=== PATIENT | male | born 1950 | race African-American/Black ===

== ENCOUNTER 2021-05-20 13:01 | Inpatient (IN) | payer MEDICARE, MEDICAID ==
[~2021-05-20] VITALS: Ht 188 cm; Wt 117.9 kg
[2021-05-20 13:52] LABS: BASOPHILS % 0.6 % (0.0-2.0); EOSINOPHILS % 1.6 % (0.0-5.0); HEMOGLOBIN. 12.2 g/dL (14.0-18.0); LYMPHOCYTES % 20.2 % (20.0-50.0); MEAN CORPUSCULAR VOLUME 74.7 fL (80.0-94.0); MEAN PLATELET VOLUME 8.4 fl (7.4-10.4); MONOCYTES % 5.6 % (2.0-8.0); PLATELET 496 x1000/uL (130-400); RED BLOOD CELL COUNT 5.08 mill/uL (4.7-6.1); RED CELL DISTRIBUTION WIDTH 17.6 % (11.6-14.6)
[2021-05-20 13:59] LABS: CHLORIDE 106 mEq/L (98-107)
[2021-05-20 14:02] LABS: INR 1.1; PROTHROMBIN TIME 12.2 sec (9.6-11.0)
[2021-05-20] MEDS ORDERED: PIPERACILLIN/TAZ 3.375G PREMIX 50 ML IV ONE (14:45)
[2021-05-20] MEDS ORDERED: VANCOMYCIN 1 G PREMIX 200 ML IV ONE (14:45)
[2021-05-20] MEDS ORDERED: LORAZEPAM 2MG/ML CPJ IV PRN ×2 (19:45)
[2021-05-20] MEDS ORDERED: ACETAMINOPHEN 325MG TABLET PO PRN (21:30)
[2021-05-20] MEDS ORDERED: ONDANSETRON HCL 4MG/2ML INJ IV PRN (21:30)
[2021-05-20] MEDS ORDERED: ENOXAPARIN 40MG/0.4ML SYR SUBCUT SCH (21:30)
[2021-05-20] MEDS: DEXT 5%/0.45% NACL 1000ML 1,000 ML IV SCH (22:30)
[2021-05-20] MEDS: ENOXAPARIN 30MG/0.3ML SYR SUBCUT SCH (22:53)
[2021-05-21] VITALS: BP_SYST 131; BP_SYST 99; BP_DIAS 42; BP_DIAS 56
[2021-05-21 04:00] VITALS: BP 107/78
[2021-05-21] MEDS: LORAZEPAM 2MG/ML CPJ IV PRN (04:13)
[2021-05-21 05:27] LABS: BASOPHILS % 0.6 % (0.0-2.0); EOSINOPHILS % 0.4 % (0.0-5.0); HEMATOCRIT. 34.6 % (42.0-52.0); HEMOGLOBIN. 11.1 g/dL (14.0-18.0); LYMPHOCYTES % 15.1 % (20.0-50.0); MEAN CORPUSCULAR VOLUME 74.5 fL (80.0-94.0); MEAN PLATELET VOLUME 8.7 fl (7.4-10.4); MONOCYTES % 8.6 % (2.0-8.0); NEUTROPHILS % 75.3 % (40.0-76.0); PLATELET 387 x1000/uL (130-400); RED BLOOD CELL COUNT 4.64 mill/uL (4.7-6.1); RED CELL DISTRIBUTION WIDTH 17.6 % (11.6-14.6)
[2021-05-21 06:27] LABS: T4 FREE 2.29 ng/dL (0.76-1.46)
[2021-05-21 08:00] VITALS: BP 111/70
[2021-05-21] MEDS: ENOXAPARIN 30MG/0.3ML SYR SUBCUT SCH ×2 (10:12→21:00)
[2021-05-21 12:00] VITALS: BP 110/71
[2021-05-21 12:14] LABS: CHLORIDE 109 mEq/L (98-107)
[2021-05-21] MEDS ORDERED: ASPIRIN 81MG EC TABLET PO SCH (12:30)
[2021-05-21] MEDS: DEXT 5%/0.45% NACL 1000ML 1,000 ML IV SCH ×2 (15:25→22:39)
[2021-05-21] MEDS: PIPERACILLIN/TAZOBACTAM 3.375 G in DEXTROSE 5% WATER 50 ML IV SCH ×2 (15:25→22:26)
[2021-05-21 16:00] VITALS: BP 147/59
[2021-05-21 20:00] VITALS: BP 138/92
[2021-05-21 21:41] LABS: PHOSPHORUS 3.7 mg/dL (2.5-4.9)
[2021-05-22] VITALS: BP 121/70
[2021-05-22 02:00] LABS: BG BASE EXCESS 2.4 mmol/L (-2.0-2.0); BG CARBOXYHEMOGLOBIN 0.4 % (0.5-1.5); BG DEOXYHEMOGLOBIN 3.9 % (0.0-5.0); BG FRACTION INSPIRED OXYGEN 21; BG HCO3 ACT 26.7 mmol/L (22.0-26.0); BG METHEMOGLOBIN 0.3 % (0.0-1.5); BG OXYGEN SATURATION 96.1 % (92.0-98.5); BG OXYHEMOGLOBIN 95.4 % (94.0-97.0); BG PH 7.442 (7.350-7.450); BG PO2 82.1 mmHg (75.0-100.0); BG SAMPLE SITE RIGHT RADIAL; BG TOTAL HEMOGLOBIN 12.8 g/dL (12.0-18.0); BG VENT MODE ROOM AIR
[2021-05-22 04:00] VITALS: BP 153/79
[2021-05-22] MEDS: PIPERACILLIN/TAZOBACTAM 3.375 G in DEXTROSE 5% WATER 50 ML IV SCH ×3 (06:08→21:00)
[2021-05-22] MEDS: DEXT 5%/0.45% NACL 1000ML 1,000 ML IV SCH ×3 (06:08→22:32)
[2021-05-22 07:35] LABS: BASOPHILS % 0.7 % (0.0-2.0); EOSINOPHILS % 1.8 % (0.0-5.0); HEMATOCRIT. 34.2 % (42.0-52.0); LYMPHOCYTES % 10.9 % (20.0-50.0); MEAN CORPUSCULAR HEMOGLOBIN 23.8 pg (28.0-32.0); MEAN CORPUSCULAR VOLUME 73.9 fL (80.0-94.0); MEAN PLATELET VOLUME 8.7 fl (7.4-10.4); MONOCYTES % 6.3 % (2.0-8.0); NEUTROPHILS % 80.3 % (40.0-76.0); PLATELET 424 x1000/uL (130-400); RED BLOOD CELL COUNT 4.63 mill/uL (4.7-6.1); RED CELL DISTRIBUTION WIDTH 17.4 % (11.6-14.6)
[2021-05-22 07:52] LABS: CHLORIDE 108 mEq/L (98-107)
[2021-05-22 08:00] VITALS: BP 125/72
[2021-05-22 08:44] LABS: CLARITY URINE TURBID (CLEAR); COLOR URINE ORANGE (YELLOW); KETONES URINE TRACE (NEGATIVE); LEUKOCYTE ESTERASE URINE 1+ (NEGATIVE); NITRITE URINE NEGATIVE (NEGATIVE); OCCULT BLOOD URINE 1+ (NEGATIVE); PROTEIN URINE 2+ (NEGATIVE); SPECIFIC GRAVITY URINE 1.025 (1.005-1.030)
[2021-05-22] MEDS: ENOXAPARIN 30MG/0.3ML SYR SUBCUT SCH ×2 (09:42→21:00)
[2021-05-22] MEDS: ASPIRIN 81MG EC TABLET PO SCH (09:43)
[2021-05-22] MEDS ORDERED: AMLODIPINE 5MG TABLET PO NR (11:30)
[2021-05-22] MEDS: MAGNESIUM OXIDE 400MG TABLET PO SCH (11:30)
[2021-05-22] MEDS ORDERED: MAGNESIUM 1 G PREMIX 100 ML IV ONE (11:30)
[2021-05-22 11:44] LABS: CREATINE KINASE 127 IU/L (39-308)
[2021-05-22 12:00] VITALS: BP 108/75
[2021-05-22 16:00] VITALS: BP 111/80
[2021-05-22 20:00] VITALS: BP 118/64
[2021-05-23] VITALS: BP 120/76
[2021-05-23 00:47] LABS: ETHANOL BLOOD < 10 mg/dL
[2021-05-23 00:53] LABS: FOLIC ACID (FOLATE) SERUM 5.3 ng/mL (>5.38); T4 FREE 2.18 ng/dL (0.76-1.46)
[2021-05-23 04:00] VITALS: BP 129/87
[2021-05-23] MEDS: PIPERACILLIN/TAZOBACTAM 3.375 G in DEXTROSE 5% WATER 50 ML IV SCH ×3 (05:07→21:05)
[2021-05-23] MEDS: DEXT 5%/0.45% NACL 1000ML 1,000 ML IV SCH ×3 (06:32→21:06)
[2021-05-23 08:00] VITALS: BP 142/80
[2021-05-23 09:07] LABS: A/G RATIO 0.5 (0.7-1.7); ALBUMIN 2.3 g/dL (2.9-4.4); ALPHA-1-GLOBULIN 0.5 g/dL (0.0-0.4); ALPHA-2-GLOBULIN 0.9 g/dL (0.4-1.0); ANTI-NUCLEAR ANTIBODIES DIRECT Negative (Negative); BETA GLOBULIN 1.1 g/dL (0.7-1.3); GAMMA GLOBULINS 2.1 g/dL (0.4-1.8); GLOBULIN TOTAL 4.5 g/dL (2.2-3.9); M-SPIKE Not Observed g/dL (Not Observed); TOTAL PROTEIN SERUM 6.8 g/dL (6.0-8.5)
[2021-05-23] MEDS: MULTIVITAMINS,THER W-MINERALS TABLET PO SCH (09:39)
[2021-05-23] MEDS: FOLIC ACID 1MG TABLET PO SCH (09:39)
[2021-05-23] MEDS: ASPIRIN 81MG EC TABLET PO SCH (09:39)
[2021-05-23] MEDS: MAGNESIUM OXIDE 400MG TABLET PO SCH (09:39)
[2021-05-23] MEDS: AMLODIPINE 5MG TABLET PO SCH (09:39)
[2021-05-23] MEDS: THIAMINE HCL 100MG TABLET PO SCH (09:39)
[2021-05-23] MEDS: ENOXAPARIN 30MG/0.3ML SYR SUBCUT SCH (09:39)
[2021-05-23 09:48] LABS: *AMPHETAMINES SCREEN URINE NEGATIVE (NEGATIVE); *BARBITURATES SCREEN URINE NEGATIVE (NEGATIVE); *BENZODIAZEPINES SCREEN URINE NEGATIVE (NEGATIVE); *COCAINE SCREEN URINE NEGATIVE (NEGATIVE); METHADONE URINE SCREEN NEGATIVE (NEGATIVE); OPIATES URINE SCREEN NEGATIVE (NEGATIVE)
[2021-05-23 09:49] LABS: CANNABINOID URINE SCREEN NEGATIVE (NEGATIVE); PHENCYCLIDINE URINE SCREEN NEGATIVE (NEGATIVE)
[2021-05-23 12:00] VITALS: BP 141/58
[2021-05-23 16:09] VITALS: BP 108/72
[2021-05-23 20:00] VITALS: BP 133/67
[2021-05-24] VITALS: BP 90/61
[2021-05-24 01:08] LABS: BASOPHILS % 0.9 % (0.0-2.0); EOSINOPHILS % 11.6 % (0.0-5.0); HEMATOCRIT. 28.4 % (42.0-52.0); HEMOGLOBIN. 9.3 g/dL (14.0-18.0); LYMPHOCYTES % 13.2 % (20.0-50.0); MEAN CORPUSCULAR HEMOGLOBIN 23.6 pg (28.0-32.0); MEAN CORPUSCULAR VOLUME 72.3 fL (80.0-94.0); MEAN PLATELET VOLUME 8.6 fl (7.4-10.4); MONOCYTES % 7.1 % (2.0-8.0); NEUTROPHILS % 67.2 % (40.0-76.0); PLATELET 347 x1000/uL (130-400); RED BLOOD CELL COUNT 3.94 mill/uL (4.7-6.1); RED CELL DISTRIBUTION WIDTH 17.2 % (11.6-14.6)
[2021-05-24 01:14] LABS: CHLORIDE 109 mEq/L (98-107)
[2021-05-24 04:00] VITALS: BP 142/71
[2021-05-24] MEDS: DEXT 5%/0.45% NACL 1000ML 1,000 ML IV SCH ×3 (04:04→17:39)
[2021-05-24] MEDS: PIPERACILLIN/TAZOBACTAM 3.375 G in DEXTROSE 5% WATER 50 ML IV SCH ×3 (05:11→21:22)
[2021-05-24 08:25] VITALS: BP_SYST 101; BP_SYST 106; BP_DIAS 74; BP_DIAS 79
[2021-05-24] MEDS: AMLODIPINE 5MG TABLET PO SCH (09:00)
[2021-05-24] MEDS: ASPIRIN 81MG EC TABLET PO SCH (09:33)
[2021-05-24] MEDS: ENOXAPARIN 30MG/0.3ML SYR SUBCUT SCH (09:34)
[2021-05-24] MEDS: MAGNESIUM OXIDE 400MG TABLET PO SCH (09:34)
[2021-05-24] MEDS: MULTIVITAMINS,THER W-MINERALS TABLET PO SCH (09:34)
[2021-05-24] MEDS: FOLIC ACID 1MG TABLET PO SCH (09:34)
[2021-05-24] MEDS: THIAMINE HCL 100MG TABLET PO SCH (09:34)
[2021-05-24 09:37] LABS: BASOPHILS % 0.7 % (0.0-2.0); EOSINOPHILS % 10.7 % (0.0-5.0); HEMATOCRIT. 31.7 % (42.0-52.0); HEMOGLOBIN. 10.2 g/dL (14.0-18.0); LYMPHOCYTES % 13.7 % (20.0-50.0); MEAN CORPUSCULAR HEMOGLOBIN 23.5 pg (28.0-32.0); MEAN CORPUSCULAR VOLUME 72.9 fL (80.0-94.0); MEAN PLATELET VOLUME 8.5 fl (7.4-10.4); MONOCYTES % 7.7 % (2.0-8.0); NEUTROPHILS % 67.2 % (40.0-76.0); PLATELET 372 x1000/uL (130-400); RED BLOOD CELL COUNT 4.35 mill/uL (4.7-6.1); RED CELL DISTRIBUTION WIDTH 17.1 % (11.6-14.6)
[2021-05-24] MEDS: LORAZEPAM 2MG/ML CPJ IV PRN (09:51)
[2021-05-24 12:00] VITALS: BP 135/77
[2021-05-24 16:00] VITALS: BP 153/88
[2021-05-24 17:06] LABS: ANGIOTENSION CONVERTING ENZYME 21 U/L (14-82)
[2021-05-24 20:00] VITALS: BP 120/59
[2021-05-25] VITALS: BP 135/71
[2021-05-25] MEDS: DEXT 5%/0.45% NACL 1000ML 1,000 ML IV SCH ×3 (00:37→14:50)
[2021-05-25 04:00] VITALS: BP 122/59
[2021-05-25] MEDS: PIPERACILLIN/TAZOBACTAM 3.375 G in DEXTROSE 5% WATER 50 ML IV SCH ×2 (05:01→14:50)
[2021-05-25 06:27] LABS: BASOPHILS % 0.9 % (0.0-2.0); EOSINOPHILS % 10.2 % (0.0-5.0); HEMATOCRIT. 32.6 % (42.0-52.0); HEMOGLOBIN. 10.6 g/dL (14.0-18.0); LYMPHOCYTES % 15.7 % (20.0-50.0); MEAN CORPUSCULAR HEMOGLOBIN 24.1 pg (28.0-32.0); MEAN CORPUSCULAR VOLUME 74.3 fL (80.0-94.0); MEAN PLATELET VOLUME 8.5 fl (7.4-10.4); MONOCYTES % 8.9 % (2.0-8.0); NEUTROPHILS % 64.3 % (40.0-76.0); PLATELET 376 x1000/uL (130-400); RED BLOOD CELL COUNT 4.39 mill/uL (4.7-6.1); RED CELL DISTRIBUTION WIDTH 17.4 % (11.6-14.6)
[2021-05-25 06:46] LABS: PHOSPHORUS 3.3 mg/dL (2.5-4.9)
[2021-05-25 08:00] VITALS: BP 130/79
[2021-05-25] MEDS: FOLIC ACID 1MG TABLET PO SCH (08:43)
[2021-05-25] MEDS: AMLODIPINE 5MG TABLET PO SCH (08:43)
[2021-05-25] MEDS: ENOXAPARIN 30MG/0.3ML SYR SUBCUT SCH (08:43)
[2021-05-25] MEDS: MULTIVITAMINS,THER W-MINERALS TABLET PO SCH (08:43)
[2021-05-25] MEDS: MAGNESIUM OXIDE 400MG TABLET PO SCH (08:43)
[2021-05-25] MEDS: ASPIRIN 81MG EC TABLET PO SCH (08:44)
[2021-05-25] MEDS: THIAMINE HCL 100MG TABLET PO SCH (08:46)
[2021-05-25 12:00] VITALS: BP 124/81
[2021-05-25 16:00] VITALS: BP 140/60
[2021-05-25 20:00] VITALS: BP 141/70
[2021-05-26] VITALS (7 sets, daily range): BP systolic 108–156; BP diastolic 44–88
[2021-05-26] MEDS: PIPERACILLIN/TAZOBACTAM 3.375 G in DEXTROSE 5% WATER 50 ML IV SCH ×2 (00:13→06:03)
[2021-05-26 07:00] LABS: BASOPHILS % 0.5 % (0.0-2.0); EOSINOPHILS % 6.9 % (0.0-5.0); HEMATOCRIT. 31.9 % (42.0-52.0); HEMOGLOBIN. 10.4 g/dL (14.0-18.0); LYMPHOCYTES % 18.8 % (20.0-50.0); MEAN CORPUSCULAR VOLUME 73.7 fL (80.0-94.0); MEAN PLATELET VOLUME 8.6 fl (7.4-10.4); MONOCYTES % 12.2 % (2.0-8.0); NEUTROPHILS % 61.6 % (40.0-76.0); PLATELET 371 x1000/uL (130-400); RED BLOOD CELL COUNT 4.32 mill/uL (4.7-6.1); RED CELL DISTRIBUTION WIDTH 17.6 % (11.6-14.6)
[2021-05-26] MEDS: MULTIVITAMINS,THER W-MINERALS TABLET PO SCH (09:30)
[2021-05-26] MEDS: MAGNESIUM OXIDE 400MG TABLET PO SCH (09:30)
[2021-05-26] MEDS: THIAMINE HCL 100MG TABLET PO SCH (09:30)
[2021-05-26] MEDS: FOLIC ACID 1MG TABLET PO SCH (09:30)
[2021-05-26] MEDS: AMLODIPINE 5MG TABLET PO SCH (09:30)
[2021-05-26] MEDS: ASPIRIN 81MG EC TABLET PO SCH (09:30)
[2021-05-26] MEDS: ENOXAPARIN 30MG/0.3ML SYR SUBCUT SCH (09:31)
[2021-05-26] MEDS: DEXT 5%/0.45% NACL 1000ML 1,000 ML IV SCH ×2 (09:31→21:04)
[2021-05-26] MEDS ORDERED: ENOXAPARIN 30MG/0.3ML SYR SUBCUT SCH (21:00)
== END 2021-05-26 22:15 | DRG 871 ==
LOC: EDBD 13:09 → ER 13:09 → 7EST 15:06 → EDBD 15:06 → EDBEDREQSVC 15:32 → EDBEDREQ 15:32 → ENRESERV 20:24
PROVIDERS: ADMIT Hospitalist; ATTEND Hospitalist
PROC: 4A10X4Z Monitoring of Central Nervous Electrical Activity, External Approach (ICD-10-PCS; principal; 2021-05-23)
DX: A41.9 Sepsis, unspecified organism (principal); I21.4 Non-ST elevation (NSTEMI) myocardial infarction; E43 Unspecified severe protein-calorie malnutrition; G92.8 Other toxic encephalopathy; E87.2 Acidosis; N17.9 Acute kidney failure, unspecified; L97.919 Non-pressure chronic ulcer of unspecified part of right lower leg with unspecified severity; E83.52 Hypercalcemia; D64.9 Anemia, unspecified; I10 Essential (primary) hypertension; I44.0 Atrioventricular block, first degree; I48.91 Unspecified atrial fibrillation; I87.2 Venous insufficiency (chronic) (peripheral); L97.529 Non-pressure chronic ulcer of other part of left foot with unspecified severity; R94.5 Abnormal results of liver function studies; E05.90 Thyrotoxicosis, unspecified without thyrotoxic crisis or storm; Z20.822 Contact with and (suspected) exposure to COVID-19; I73.9 Peripheral vascular disease, unspecified; S90.922A Unspecified superficial injury of left foot, initial encounter; S90.921A Unspecified superficial injury of right foot, initial encounter; X58.XXXA Exposure to other specified factors, initial encounter; J44.9 Chronic obstructive pulmonary disease, unspecified; R53.81 Other malaise; L89.890 Pressure ulcer of other site, unstageable; E03.9 Hypothyroidism, unspecified; R79.89 Other specified abnormal findings of blood chemistry; E83.42 Hypomagnesemia; Y93.89 Activity, other specified; Y92.89 Other specified places as the place of occurrence of the external cause; Y99.8 Other external cause status; Z59.00 Homelessness unspecified; Z78.1 Physical restraint status; Z79.899 Other long term (current) drug therapy; Z79.82 Long term (current) use of aspirin; Z68.33 Body mass index [BMI] 33.0-33.9, adult
CPT/HCPCS: 36415; 36600; 71045; 76770; 80048; 80053; 80305; 80320; 81003; 82140; 82164; 82375; 82533; 82550; 82575; 82607; 82746; 82805; 83036; 83605; 83735; 83880; 83970; 84100; 84134; 84145; 84155; 84165; 84439; 84443; 84481; 84484; 85025; 86038; 86160; 87426; 92610; 93005; 93306; 93923; 93970; 99291; J1650; J2060; J2405; J2543; J3370; J3475; J7060; G0480